=== PATIENT | female | born 1985 ===

== ENCOUNTER 2017-12-09 06:58 | Emergency (ER) | payer SELFPAY ==
[2017-12-09 06:59] VITALS: BMI 26.4
[2017-12-09 07:11] VITALS: BP 99/57; PULSE 79; RESP 17; TEMP 98.6; O2SAT 99
--- NOTE | 2017-12-09 07:51 | C.PDOC ---
History Of Present Illness 31 y/o female presents to ED with c/o sore throat for 3 dyas. Patient denies recent travel, fever, congestion, chest pain, sob, nausea, vomiting or any other complaints at this time. Time Seen by Provider: 12/09/17 07:14 Chief Complaint (Nursing): ENT Problem History Per: Patient History/Exam Limitations: None Onset/Duration Of Symptoms: Days Current Symptoms Are (Timing): Still Present Severity: Mild Past Medical History Reviewed: Historical Data, Nursing Documentation, Vital Signs Vital Signs: Last Vital Signs Temp 98.6 F 12/09/17 07:08 Pulse 79 12/09/17 07:08 Resp 17 12/09/17 07:08 BP 99/57 L 12/09/17 07:08 Pulse Ox 99 12/09/17 16:13 - Medical History PMH: Migraine Surgical History: No Surg Hx - [facility] Procedures INJECT/INFUSE NEC (02/20/14) Family History: States: No Known Family Hx - Social History Hx Alcohol Use: No Hx Substance Use: No Review Of Systems Constitutional: Negative for: Fever, Chills ENT: Positive for: Throat Pain. Negative for: Ear Pain Cardiovascular: Negative for: Chest Pain Respiratory: Negative for: Cough, Shortness of Breath Gastrointestinal: Negative for: Nausea, Vomiting Skin: Negative for: Rash Physical Exam - Physical Exam Appears: Non-toxic, No Acute Distress Skin: Warm, Dry, No Rash Head: Atraumatic, Normacephalic Eye(s): bilateral: Normal Inspection Ear(s): Bilateral: Normal Oral Mucosa: Moist Throat: Normal, No Erythema, No Exudate Neck: Normal, No Paracervical Tenderness, Supple Cardiovascular: Rhythm Regular Respiratory: Normal Breath Sounds, No Rales, No Rhonchi, No Wheezing Gastrointestinal/Abdominal: Soft, No Tenderness, No Guarding, No Rebound Extremity: Normal ROM Neurological/Psych: Oriented x3, Normal Speech ED Course And Treatment O2 Sat by Pulse Oximetry: 99 (RA) Pulse Ox Interpretation: Normal Progress Note: Strep test- negative Disposition Counseled Patient/Family Regarding: Diagnosis, Need For Followup - Disposition Referrals: [facility] [Outside] [facility] [Outside] Disposition: HOME/ ROUTINE Disposition Time: 08:10 Condition: GOOD Additional Instructions: Follow up with clinic for further evaluation Return to ED if any increase symptoms Instructions: Sore Throat in Adults Forms: [facility] (Portuguese) Print Language: SYRIAN - POA Present On Arrival: None - Clinical Impression Clinical Impression: Pharyngitis - PA / CADDY PACKER / Resident Statement MD/DO has reviewed & agrees with the documentation as recorded. - Scribe Statement The provider has reviewed the documentation as recorded by the Tamiibjavy Serna All medical record entries made by the Travon were at my direction and personally dictated by me. I have reviewed the chart and agree that the record accurately reflects my personal performance of the history, physical exam, medical decision making, and the department course for this patient. I have also personally directed, reviewed, and agree with the discharge instructions and disposition.
== END 2017-12-09 07:59 | disposition home or self-care (01) ==
LOC: C.ER 06:58
DX: J02.9 Acute pharyngitis, unspecified (principal)

== ENCOUNTER 2018-05-26 11:27 | Emergency (ER) | payer SELFPAY ==
[2018-05-26 11:27] VITALS: BMI 26.4
[2018-05-26 11:45] VITALS: BP 106/72; PULSE 74; RESP 16; TEMP 98.2; O2SAT 99
--- NOTE | 2018-05-26 12:27 | C.PDOC ---
History Of Present Illness 32 y/o female presents to the ED complaining of a sore throat for 2 weeks. States she gets recurrent tonsillitis every other month, and she usually manages pain with ibuprofen 600mg q8 hours. She reports having seen doctors in the past, but denies any antibiotic treatment. Patient was referred to Dr. Guerrero and was told she needs tonsillectomy. Currently she rates pain 6/10, and it radiates along her jaw and neck. She denies any fevers, chills, otalgia, rhinorrhea, nausea, vomiting, cough, chest pain. Time Seen by Provider: 05/26/18 11:43 Chief Complaint (Nursing): ENT Problem History Per: Patient History/Exam Limitations: no limitations Onset/Duration Of Symptoms: Days Current Symptoms Are (Timing): Still Present Location Of Pain: Throat Past Medical History Reviewed: Historical Data, Nursing Documentation, Vital Signs Vital Signs: Last Vital Signs Temp 98.2 F 05/26/18 11:40 Pulse 74 05/26/18 11:40 Resp 16 05/26/18 11:40 BP 106/72 05/26/18 11:40 Pulse Ox 99 05/26/18 11:40 - Medical History PMH: Migraine Other PMH: Recurrent tonsillitis Surgical History: No Surg Hx - [facility] Procedures INJECT/INFUSE NEC (02/20/14) Family History: States: Unknown Family Hx - Social History Hx Tobacco Use: No Hx Alcohol Use: No Hx Substance Use: No Review Of Systems Constitutional: Negative for: Fever, Chills ENT: Positive for: Throat Pain. Negative for: Ear Pain Cardiovascular: Negative for: Chest Pain Respiratory: Negative for: Cough, Shortness of Breath Gastrointestinal: Negative for: Nausea, Vomiting, Diarrhea Skin: Negative for: Rash Neurological: Negative for: Weakness, Headache Physical Exam - Physical Exam Appears: Non-toxic, No Acute Distress Skin: Normal Color, Warm, No Rash Head: Atraumatic, Normacephalic Eye(s): bilateral: PERRL, EOMI, Other (Conjunctival injection bilaterally) Oral Mucosa: Moist Throat: Erythema (moderate pharyngeal erythema), No Exudate, Other (+1 tonsils) Neck: Normal ROM Chest: Symmetrical Cardiovascular: Rhythm Regular, No Murmur Respiratory: No Rales, No Rhonchi, No Wheezing, Other (Lungs clear bilaterally) Extremity: Bilateral: Atraumatic, Normal Color And Temperature, Normal ROM Pulses: Left Radial: Normal, Right Radial: Normal Neurological/Psych: Oriented x3 ED Course And Treatment O2 Sat by Pulse Oximetry: 99 (RA) Pulse Ox Interpretation: Normal Medical Decision Making Medical Decision Making: Impression: Tonsillitis Initial Plan: - 600 mg PO Motrin - 650 mg PO Tylenol Disposition Counseled Patient/Family Regarding: Diagnosis, Need For Followup, Rx Given - Disposition Referrals: Javi Guerrero MD [Staff Provider] - Disposition: HOME/ ROUTINE Disposition Time: 13:13 Condition: STABLE Additional Instructions: KARY PERALTA, thank you for letting us take care of you today. Your provider was Vicky Snowden PA-C and you were treated for SORE THROAT. The emergency medical care you received today was directed at your acute symptoms. If you were prescribed any medication, please fill it and take as directed. It may take several days for your symptoms to resolve. Return to the Emergency Department if your symptoms worsen, do not improve, or if you have any other problems. Please contact your doctor or call one of the physicians/clinics you have been referred to that are listed on the Patient Visit Information form that is included in your discharge packet. Bring any paperwork you were given at discharge with you along with any medications you are taking to your follow up visit. Our treatment cannot replace ongoing medical care by a primary care provider outside of the emergency department. Thank you for allowing the [facility] team to be part of your care today. Prescriptions: Ibuprofen [Motrin] 600 mg PO TID PRN #30 tab PRN Reason: Pain, Moderate (4-7) Instructions: Sore Throat, Adult (DC) Forms: [employer] (Indonesian) Print Language: ESTONIAN - Clinical Impression Clinical Impression: Tonsillitis - PA / INDUCTOR TESTER / Resident Statement MD/DO has reviewed & agrees with the documentation as recorded. - Scribe Statement The provider has reviewed the documentation as recorded by the Tamiibjavy Araujo All medical record entries made by the Scribe were at my direction and personally dictated by me. I have reviewed the chart and agree that the record accurately reflects my personal performance of the history, physical exam, medical decision making, and the department course for this patient. I have also personally directed, reviewed, and agree with the discharge instructions and disposition.
--- NOTE | 2018-05-26 13:10 | C.PDOC ---
Time Seen by Provider: 05/26/18 11:43 Chief Complaint (Nursing): ENT Problem Past Medical History Vital Signs: Last Vital Signs Temp 98.2 F 05/26/18 11:40 Pulse 74 05/26/18 11:40 Resp 16 05/26/18 11:40 BP 106/72 05/26/18 11:40 Pulse Ox 99 05/26/18 11:40 - Medical History PMH: Migraine - [facility] Procedures INJECT/INFUSE NEC (02/20/14) Family History: States: Unknown Family Hx - Social History Hx Alcohol Use: No Hx Substance Use: No ED Course And Treatment O2 Sat by Pulse Oximetry: 99 Disposition Counseled Patient/Family Regarding: Diagnosis, Need For Followup, Rx Given - Disposition Disposition: HOME/ ROUTINE Disposition Time: 13:10 Condition: STABLE Additional Instructions: KARY PERALTA, thank you for letting us take care of you today. Your provider was Vicky Snowden PA-C and you were treated for SORE THROAT. The emergency medical care you received today was directed at your acute symptoms. If you were prescribed any medication, please fill it and take as directed. It may take several days for your symptoms to resolve. Return to the Emergency Department if your symptoms worsen, do not improve, or if you have any other problems. Please contact your doctor or call one of the physicians/clinics you have been referred to that are listed on the Patient Visit Information form that is included in your discharge packet. Bring any paperwork you were given at discharge with you along with any medications you are taking to your follow up visit. Our treatment cannot replace ongoing medical care by a primary care provider outside of the emergency department. Thank you for allowing the [facility] team to be part of your care today. Instructions: Sore Throat, Adult (DC) Forms: [employer] (Guyanese) - Clinical Impression Clinical Impression: Tonsillitis
== END 2018-05-26 13:24 | disposition home or self-care (01) ==
LOC: C.ER 11:27
DX: J03.90 Acute tonsillitis, unspecified (principal)

== ENCOUNTER 2018-06-22 08:51 | Outpatient (CLI) | payer SELFPAY | END 2018-06-22 08:52 | disposition home or self-care (01) | LOC: C.LAB 08:51 | DX: J35.01 Chronic tonsillitis (principal) ==

== ENCOUNTER 2018-07-02 07:23 | Day surgery (SDC) | payer SELFPAY ==
[2018-06-23 12:06] VITALS: BMI 24.6
[2018-07-02] MEDS ORDERED: Morphine 10 mg/5 ml Oral Soln PO PRN (08:49)
[2018-07-02] MEDS ORDERED: Dextrose 5%/0.45% NS 1,000 ML IV SCH (09:00)
[2018-07-02] MEDS ORDERED: Acetaminophen 650mg/20.3ml solution UD PO PRN (09:30)
[2018-07-02] MEDS ORDERED: Clindamycin 600mg/50ml NS 600 MG/50 ML BAG IVPB ONE (09:42)
[2018-07-02] MEDS ORDERED: Midazolam 2 MG/2 ML VIAL ONE (09:45)
[2018-07-02] MEDS ORDERED: Propofol 10 mg/ml Inj (20 ML) ONE (09:46)
[2018-07-02 10:43] VITALS: RESP 13; O2SAT 100
[2018-07-02 11:44] VITALS: PULSE 71; TEMP 98.4
[2018-07-02 12:10] VITALS: BP 11/69
--- NOTE | 2018-07-02 17:06 | OP ---
PROCEDURE DATE: 07/02/2018 PREOPERATIVE DIAGNOSIS: Chronic tonsillitis. POSTOPERATIVE DIAGNOSIS: Chronic tonsillitis. PROCEDURE: Tonsillectomy. SIGNIFICANT FINDINGS: Chronically infected tonsils. DESCRIPTION OF PROCEDURE: The patient was brought into room, placed in supine position. Anesthesia was initiated through an ET tube. The patient was draped in usual manner. Mouth gag was placed in oral cavity, opened and suspended on the [employer] alarm installation technician usual manner. Right tonsil was grabbed, pulled medially. Incision was made in the anterior tonsillar pillar using coblation. Dissection was done between tonsil and tonsillar fossa using coblation until the tonsil was removed. Bleeding was controlled using coblation. Next, the other tonsil was grabbed, pulled medially. Incision was made in the anterior tonsillar pillar using coblation. Dissection was done between tonsil and tonsillar fossa using coblation until the tonsil was removed. Bleeding was controlled using coblation. Both tonsillar beds were rubbed vigorously with coblation wand. No bleeding was noted. Mouth gag was let down for 30 seconds, put back up, no bleeding was noted. The red rubber catheter was then removed. The mouth gag was taken out and removed. The patient was taken off anesthesia and taken to recovery room in stable manner. Javi Guerrero MD
== END 2018-07-02 12:11 | disposition home or self-care (01) ==
LOC: C.SDS 07:23
PROVIDERS: ATTEND Otolaryngology
DX: J35.01 Chronic tonsillitis (principal)
CPT/HCPCS: 42826; 88304; J1100; J1885; J2250; J2704; J3010; J7040

== ENCOUNTER 2018-07-09 18:20 | Emergency (ER) | payer SELFPAY ==
[2018-07-09 18:25] VITALS: BMI 26.3
--- NOTE | 2018-07-09 19:03 | C.PDOC ---
History Of Present Illness Patient is a 32 year old female s/p tonsillectomy with Dr. Guerrero last Thursday presents to the ED c/o vaginal itching, pain, and redness for the past week. Patient states that she has had these symptoms before and that these symptoms have been on and off for the past 5 years and that medications have improved them. She reports white vaginal discharge and odor. She mentions taking steroidal ointments for the rash in the past with significant improvement. She reports taking Monistat recently without improvement. She denies fever, headache, weakness, chest pain, sob, nausea, vomiting, pelvic pain, and vaginal bleeding. Time Seen by Provider: 07/09/18 18:47 Chief Complaint (Nursing): Female Genitourinary History Per: Patient History/Exam Limitations: no limitations Onset/Duration Of Symptoms: Days (one week) Current Symptoms Are (Timing): Still Present Associated Symptoms: Chills, Nausea, Diarrhea, Urinary Symptoms, Other (vaginal itching, redness, and pain ) Recent travel outside of the [place]: No Additional History Per: Patient Past Medical History Reviewed: Historical Data, Nursing Documentation, Vital Signs Vital Signs: Last Vital Signs Temp 98.5 F 07/09/18 18:25 Pulse 82 07/09/18 18:25 Resp 18 07/09/18 18:25 BP 113/76 07/09/18 18:25 Pulse Ox 99 07/09/18 18:25 - Medical History PMH: Migraine Surgical History: Tonsillectomy - [facility] Procedures INJECT/INFUSE NEC (02/20/14) Family History: States: Unknown Family Hx - Social History Hx Tobacco Use: No Hx Alcohol Use: No Hx Substance Use: No - Immunization History Hx Tetanus Toxoid Vaccination: No Hx Influenza Vaccination: No Hx Pneumococcal Vaccination: No Review Of Systems Constitutional: Positive for: Chills Gastrointestinal: Positive for: Nausea, Diarrhea Genitourinary: Positive for: Dysuria (secondary to scratching ), Other (vaginal itching, pain, and redness) Physical Exam - Physical Exam Appears: Non-toxic, No Acute Distress Skin: Warm, Dry Head: Atraumatic, Normacephalic Oral Mucosa: Moist Throat: Exudate (bilateral ) Neck: Supple Cardiovascular: Rhythm Regular, No Murmur Respiratory: Normal Breath Sounds, No Rales, No Rhonchi, No Wheezing Gastrointestinal/Abdominal: Soft, No Tenderness Pelvic: Vaginal Discharge (thick white drainage from cervix ), Other (mild odor, evidence of excoriation on right side of perineum beneath right labia majora and excoriation of left labia majora ) Neurological/Psych: Oriented x3, Normal Speech ED Course And Treatment O2 Sat by Pulse Oximetry: 99 (on RA) Pulse Ox Interpretation: Normal Medical Decision Making Medical Decision Making: Plan: Benadryl 25mg PO Diflucan 150mg PO UA D/W patient that she likely has yest infection and possible BV will treat for both- Fluconazole given now as well as Benadryl for itching Start Metrogel daily x 7 days [facility] in [facility] Patient verbalized understanding and is in agreement with plan patient is stable for discharge Disposition Counseled Patient/Family Regarding: Diagnosis, Need For Followup, Rx Given - Disposition Referrals: [facility] [Outside] [facility] [Outside] Disposition: HOME/ ROUTINE Disposition Time: 19:40 Condition: STABLE Additional Instructions: Start Metrogel daily for 7 days Continue Benadryl to prevent itching [facility] in [facility] for further evaluation Return to ED if symptoms worsen Prescriptions: DiphenhydrAMINE [Benadryl] 25 mg PO BID #14 cap Metronidazole [Metrogel-Vaginal] 1 ea VG QPM #7 gel Instructions: Bacterial Vaginosis (DC), Vaginal Yeast Infection (DC) Forms: [employer] (Latvian) - Clinical Impression Clinical Impression: Vulvovaginitis due to Vanessa, Bacterial vaginosis, Vaginal itching - PA / CUBE CUTTER / Resident Statement MD/DO has examined the patient and agrees with the treatment plan. - Scribe Statement The provider has reviewed the documentation as recorded by the Travon Burkett All medical record entries made by the Travon were at my direction and personally dictated by me. I have reviewed the chart and agree that the record accurately reflects my personal performance of the history, physical exam, medical decision making, and the department course for this patient. I have also personally directed, reviewed, and agree with the discharge instructions and disposition.
[2018-07-09 19:04] LABS: HCG,QUALITATIVE URINE NEGATIVE (NEGATIVE)
[2018-07-09 19:14] LABS: SQUAMOUS EPITHIAL < 1 /hpf (0-5); URINE BILIRUBIN NEGATIVE (NEGATIVE); URINE BLOOD 1+ (NEGATIVE); URINE CLARITY Clear (Clear); URINE COLOR Straw (YELLOW); URINE GLUCOSE (UA) NORMAL (Normal); URINE LEUKOCYTE ESTERASE NEG Leu/uL (Negative); URINE PROTEIN NEGATIVE (NEGATIVE); URINE UROBILINOGEN NORMAL mg/dL (0.2-1.0)
[2018-07-09 19:55] VITALS: BP 124/87; PULSE 89; RESP 16; TEMP 98.1
[2018-07-09 19:57] VITALS: O2SAT 99
== END 2018-07-09 20:00 | disposition home or self-care (01) ==
LOC: C.ER 18:20
DX: B37.3 Candidiasis of vulva and vagina (principal); L29.8 Other pruritus

== ENCOUNTER 2018-08-16 11:56 | Outpatient (CLI) | payer SELFPAY, OTHER | END 2018-08-16 11:57 | disposition home or self-care (01) | LOC: C.CTH 11:56 | DX: R42 Dizziness and giddiness (principal) ==

== ENCOUNTER 2018-08-25 15:13 | Outpatient (CLI) | payer SELFPAY | END 2018-08-25 15:14 | disposition home or self-care (01) | LOC: C.MRIC 15:13 | DX: G93.89 Other specified disorders of brain (principal) ==